=== PATIENT | female | born 1965 | race Caucasian/White ===

== ENCOUNTER 2016-05-04 05:35 | Emergency (ER) | payer OTHER ==
[~2016-05-04] VITALS: Ht 165.1 cm; Wt 62.3 kg
[2016-05-04 05:38] VITALS: BP 141/80; PULSE 76; RESP 16; O2SAT 100
[2016-05-04 05:53] VITALS: BP 141/79; PULSE 80; RESP 16; O2SAT 100
--- NOTE | 2016-05-04 06:08 | ED.REPORT ---
HPI-Neurologic Deficit Date of Service May 04, 2016 ED Provider: The patient is a 50 year old female with history of migraines presents to the emergency department for multiple symptoms. The patient developed a migraine in the night while she was at work and took her sumatriptan. Her migraine initially started with visual changes. Her head pain has improved but she is still experiencing upper and lower extremity heaviness, feeling "out of sorts," generalized weakness, visual changes, nausea, and intermittent heart fluttering. She has experienced these symptoms with previous migraines but the medication usually helps. She denies focal weakness or numbness, problem walking , dizziness, fever, chills, abdominal pain, vomiting, chest pain or shortness of breath. She often gets ocular migraines without a headache. She also reports history of panic attacks. Nursing Notes Stated Complaint: MIGRAINE Chief Complaint: Neuro Symptoms/ Deficits Nursing Notes Reviewed: Yes Allergies: Coded Allergies: hydrocodone (Verified Adverse Reaction, Intermediate, Nausea, 05/04/16) morphine (Verified Adverse Reaction, Intermediate, Nausea, 05/04/16) General Time Seen by Provider: 06:13 Chief Complaint Other (generalized weakness) Hx Obtained From: Patient Arrived By: Walk-in Sudden in Onset?: Yes Onset Occurred: 1 - 4 hours ago Symptom Duration: Since onset Location: : Head Quality: Painful Severity: Current: No pain currently Severity: Maximum: Moderate Recent Healthcare: No recent doctor visit, No recent hospitalization Similar Sx Previous: No Past Medical History Past Medical History Migraines Family History Noncontributory Smoking History Unknown if Ever Smoker Social History Other Social History: Local resident Ambulatory Status Independent Review of Systems Review of Systems Note: +feels out of sorts Constitutional: Reports: Weakness - generalized, Denies: Chills, Fever Respiratory: Denies: Shortness of breath Cardiovascular: Reports: Palpitations, Denies: Chest pain GI: Reports: Nausea, Denies: Abdominal pain, Vomiting Neurologic: Reports: Headache, Vision change, Weakness (generally), Denies: Dizziness, Focal weakness, Numbness, Problem walking, Spinning sensation Complete sys rev & neg: except as marked. Physical Exam Initial Vital Signs Vital Signs (First) Date Time Temp Pulse Resp B/P Pulse Ox O2 Delivery O2 Flow Rate FiO2 05/04/16 05:38 36.3 76 16 141/80 100 05/04/16 06:39 Room Air Initial VS: Reviewed ENT: Mucous membranes moist, Conjunctiva normal, No scleral icterus Neck: Supple, Non-tender, Full range of motion Abdomen / GI: Soft, Non-tender, No guarding, No rebound, No distention Lymphatic: No lymphadenopathy Extremities: Vascular intact, Neuro intact, No swelling, No tenderness Skin: Warm, Dry, No cyanosis Psychiatric: Mood/affect normal, Behavior normal, Normal thought content General/Constitutional: Awake, Alert Head / Eyes: Atraumatic, Normocephalic, PERRL, EOMI, No nystagmus Respiratory / Chest: Atraumatic, Breath sounds NL, Breath sounds = bilat, No respiratory distress, No rales, No rhonchi, No wheezing Cardiovascular: Heart rate NL, Regular rhythm, Heart sounds NL, No murmurs, No rubs, Peripheral circulation NL Neurologic: Oriented X3, Speech NL, No motor deficits, No sensory deficits, CN II - XII intact, Cerebellar NL, Memory NL Interpretation & Diagnostics Lab Results Interpretation Test 05/04/16 06:00 05/04/16 06:20 Hold Purple Top Tube Received (Received) Hold Blue Top Tube Received (Received) Hold Staples Top Tube Received (Received) Hold Urine Received (Received) Re-Eval/Medical Decision Med Decision/Clinical Course Patient presents with a constellation of symptoms that is similar to prior migraines, her neurologic exam is normal. She is treated with the standard headache regimen and is feeling back to normal. I did watch her weight independently without difficulty. She will be discharged with strict return and follow-up precautions. Source of Hx: Old records Re-Evaluation/Progress : Time of Eval: 07:19 Re-Evaluation/Progress Note: Rechecked the patient. She is feeling much better. Discussed plan for discharge. All questions were addressed. Counseled Regarding: Diagnosis, Lab results, Need for follow-up, When/why to return to ED Discharge & Departure Impression: Primary Impression: Migraine Migraine type: unspecified Status migrainosus presence: without status migrainosus Intractability: not intractable Qualified Code: G43.909 - Migraine, unspecified, not intractable, without status migrainosus Disposition: Home Discharge Condition All VS Reviewed: Yes Condition: Stable Patient Instructions: Migraine Headache (ED) Additional Instructions: Thank you for entrusting us with your care today. Your symptoms were most likely caused by your typical migraine. Your exam findings are not consistent with a stroke. Followup with your regular doctor in the next few days to discuss further management of your migraines. Please return to the emergency department if you develop unilateral weakness or numbness, facial droop, slurred speech, symmetric and bilateral visual loss or any other new or concerning symptoms. Scribe Attestation Portions of this note were transcribed by Yani Pate. I, Dr. Moses personally performed the history, physical exam and medical decision-making; I reviewed and confirmed the accuracy of the information in the transcribed note. Signed by: Anni Arciniega, 05/04/2016 and 0728. Mian Moses DO May 04, 2016 06:08 Yani Pate May 04, 2016 06:15
[2016-05-04] MEDS ORDERED: 0.9% Sodium Chloride 1,000 ML IV ONE (06:26)
[2016-05-04] MEDS ORDERED: Ketorolac 15 mg/mL Inj IVPUSH ONE (06:30)
[2016-05-04] MEDS ORDERED: ProchlorPERazine 5 mg/mL 2 mL Inj IVPUSH ONE (06:30)
[2016-05-04 06:39] VITALS: BP 150/86; PULSE 70; RESP 16; O2SAT 98
== END 2016-05-04 07:36 | disposition home or self-care (01) ==
LOC: SED 05:45
DX: G43.909 Migraine, unspecified, not intractable, without status migrainosus (principal); Z88.5 Allergy status to narcotic agent
CPT/HCPCS: 81025; 82948; 96374; 96375; 99284; J0780; J1200; J1885; J7030